=== PATIENT | female | born 1945 | race Caucasian/White ===

== ENCOUNTER 2021-09-15 14:02 | Observation (INO) | payer OTHER, BC ==
[2021-09-15 16:39] VITALS: BMI 30.1
[2021-09-15 17:54] LABS: Absolute Lymphocytes (CBC) 2.1 K/uL (0.7-4.9); Hematocrit 39.8 % (36.0-45.0); Lymphocytes % 25.3 % (15.3-44.8); MPV 6.5 fL (7.6-11.3); RBC Red Blood Cell Count 4.59 M/uL (3.86-4.86)
[2021-09-15] MEDS ORDERED: IPRATROPIUM BROM 0.5MG/2.5ML IH PRN (18:06)
[2021-09-15] MEDS ORDERED: ALBUTEROL 2.5 MG/3 ML NEB SOL NEB PRN (18:06)
[2021-09-15 18:15] LABS: Potassium 3.6 mmol/L (3.5-5.1)
[2021-09-15 18:43] LABS: Albumin 3.7 g/dL (3.4-5.0); Bilirubin Direct 0.2 mg/dL (0-0.2); Bilirubin Total 0.6 mg/dL (0.2-1.0); Magnesium 2.1 mg/dL (1.8-2.4); Phosphorus 3.4 mg/dL (2.5-4.9); Protein, Total 7.8 g/dL (6.4-8.2); Thyroid Stimulating Hormone 2.08 uIU/mL (0.360-3.740)
[2021-09-15] MEDS: CEFOXITIN 1 GM in NA CHLORIDE 0.9% 50 ML IVPB SCH (18:51)
[2021-09-15] MEDS ORDERED: LOPERAMIDE HCL 2 MG CAPSULE PO PRN (19:00)
[2021-09-15] MEDS ORDERED: POLYETHYL GLY 3350 17 GM/DOSE PO PRN (19:00)
[2021-09-15] MEDS ORDERED: ACETAMINOPHEN 325 MG TABLET PO PRN (19:00)
[2021-09-15] MEDS ORDERED: DIPHENHYDRAMINE 25 MG TAB/CAP PO PRN (19:00)
[2021-09-15] MEDS ORDERED: ONDANSETRON 4 MG (ODT) TAB PO PRN (19:00)
[2021-09-15] MEDS ORDERED: ONDANSETRON 4 MG/2 ML VIAL IV PRN (19:00)
[2021-09-15] MEDS ORDERED: NACHLORIDE 0.45% 1,000 ML IV SCH (19:00)
--- NOTE | 2021-09-15 19:45 | RAD REPORT ---
EXAM DESCRIPTION: CTAbdomen Pelvis W Contrast - 09/15/2021 7:23 pm CLINICAL HISTORY: Abdominal pain. abdominal pain COMPARISON: Abdomen Pelvis W Contrast dated 10/26/2016 TECHNIQUE: Biphasic CT imaging of the abdomen and pelvis was performed with 100 ml non-ionic IV cont rast. All CT scans are performed using dose optimization technique as appropriate and may include automated exposure control or mA/KV adjustment according to patient size. FINDINGS: Linear atelectasis is present in the right lung base. Mild fatty liver is present. No intra or extrahepatic biliary tree dilatation. The spleen, pancreas, adrenal glands are normal. Small benign cysts are present in both kidneys bilaterally. 4.2 cm infrarenal abdominal aortic aneurysm is present. This has increased in size from 3.2 cm in 201 7. No bowel obstruction, free air, free fluid or abscess. Mild lumbosacral degenerative changes. The katya endix is not identified as a discrete structure, however, no secondary findings of appendicitis are i dentified. No evidence of significant lymphadenopathy. No suspicious bony findings. IMPRESSION: 4.2 cm infrarenal abdominal aortic aneurysm, increased in size 1 centimeter since 2017. Mild fatty liver is present.
--- NOTE | 2021-09-15 20:04 | RAD REPORT ---
EXAM DESCRIPTION: RAD - Chest Pa And Lat (2 Views) - 09/15/2021 7:57 pm CLINICAL HISTORY: direct admit Chest pain. COMPARISON: Chest Single View dated 11/30/2019; Chest Pa And Lat (2 Views) dated 06/25/2019; Chest Pa An d Lat (2 Views) dated 10/26/2016 TECHNIQUE: PA and lateral views of the chest were obtained. FINDINGS: The lungs are hyperexpanded compatible with COPD. The heart is upper limit of normal in si ze. No fracture or aggressive bony process. IMPRESSION: COPD without acute process identified. The USPSTF recommends annual screening for lung cancer with low-dose CT (LDCT) in adults aged 50 to 80 years who have a 20 pack-year smoking history and currently smoke or have quit within the past 15 years.
--- NOTE | 2021-09-15 20:12 | RAD REPORT ---
EXAM DESCRIPTION: MRI - Lumbar Spine Wo Adolph- 09/15/2021 8:00 pm CLINICAL HISTORY: pain Pain, radiculopathy COMPARISON: No comparisons FINDINGS: Vertebral body heights are within normal limits. No aggressive marrow pattern is observed. No fracture is suspected. The conus medullaris terminates at a normal level. No thickening of the cauda equina or clumping of n erve roots seen. L1-2 level: Broad-based posterior disc bulge with mild facet and ligamentum flavum hypertrophy. L2-3 level: Broad-based posterior disc bulge with mild facet ligamentum flavum hypertrophy. No canal or foraminal stenosis. L3-4 level: Broad-based posterior disc bulge with mild facet and ligamentum flavum hypertrophy. Mild narrowing of the anterior inferior aspects of both exit foramina. L4-5 level: Mild posterior disc bulge asymmetric to the left with [id number] facet and ligament um flavum hypertrophy. Mild central canal narrowing is present. Mild narrowing the anterior inferior aspect of the left exit foramen. L5-S1 level: Mild facet and ligamentum flavum hypertrophy. IMPRESSION: Mild lumbar degenerative changes are present. No high-grade canal stenosis or foraminal stenosis at any level.
[2021-09-15] MEDS ORDERED: AMITRIPTYLINE 25 MG PO SCH (21:00)
[2021-09-15] MEDS ORDERED: HOME MED 1 EA UNK (Oxybutynin Chloride [Oxybutynin Chloride Er] 10 MG Tab.Er.24) PO SCH (21:00)
[2021-09-15] MEDS ORDERED: GABAPENTIN 400 MG PO SCH (21:00)
[2021-09-15] MEDS ORDERED: MELATONIN 5 MG PO SCH (21:00)
[2021-09-15] MEDS ORDERED: EZETIMIBE 10 MG PO SCH (21:00)
[2021-09-15] MEDS ORDERED: POTASSIUM CL SA 10 MEQ TAB PO ONE (21:00)
[2021-09-15] MEDS ORDERED: BISOPROLOL 5 MG TABLET PO SCH (21:00)
[2021-09-15] MEDS ORDERED: HOME MED 1 EA UNK (Meclizine Hcl [Meclizine Hcl] 25 MG Tablet) PO SCH (21:00)
[2021-09-16] MEDS: CEFOXITIN 1 GM in NA CHLORIDE 0.9% 50 ML IVPB SCH (02:02)
[2021-09-16 02:18] LABS: Urine Appearance Clear (Clear); Urine Bilirubin Negative (Negative); Urine Blood Trace-lysed (Negative); Urine Color Yellow (Yellow); Urine Glucose Negative (Negative); Urine Protein Negative (Negative); Urine Urobilinogen 0.2 mg/dL (0.2-1.0)
[2021-09-16 02:20] LABS: Urine Microscopic Reflex ORDER UMIC
[2021-09-16 03:18] LABS: Calcium Oxalate Crystals- Ur MODERATE (NONE SEEN); Urine Bacteria <20 /HPF (<20); Urine RBC <5 /HPF (NONE SEEN); Urine Urothelial Cells <5 /HPF (NONE SEEN)
[2021-09-16] MEDS ORDERED: LEVOTHYROXINE 0.075 MG PO SCH (06:00)
[2021-09-16] MEDS ORDERED: ENOXAPARIN 40 MG/0.4 ML SQ SCH (09:00)
[2021-09-16] MEDS ORDERED: FUROSEMIDE 20 MG PO SCH (09:00)
[2021-09-16] MEDS ORDERED: CHOLECALCIFEROL 125 MCG PO SCH (09:00)
[2021-09-16] MEDS ORDERED: HOME MED 1 EA UNK (Cetirizine Hcl [Zyrtec] 10 MG Tablet) PO SCH (09:00)
[2021-09-16 10:15] VITALS: BP 137/62; TEMP 97.1
[2021-09-16] MEDS ORDERED: IPRATROPIUM BROM 0.5MG/2.5ML NEB PRN (11:00)
[2021-09-16 11:06] VITALS: O2SAT 95
[2021-09-21 11:21] LABS: Vitamin D 1,25-Dihydroxy Total 89 pg/mL (18-72); Vitamin D,1,25-OH2, D2 <8 pg/mL
== END 2021-09-16 10:40 | disposition home or self-care (01) ==
LOC: 2ND 16:07
PROVIDERS: ADMIT Internal Medicine; ATTEND Internal Medicine
DX: M54.9 Dorsalgia, unspecified (principal); R10.84 Generalized abdominal pain; R63.4 Abnormal weight loss; Z68.30 Body mass index [BMI] 30.0-30.9, adult; J44.9 Chronic obstructive pulmonary disease, unspecified; I71.4 Abdominal aortic aneurysm, without rupture; E78.5 Hyperlipidemia, unspecified; M19.90 Unspecified osteoarthritis, unspecified site; R32 Unspecified urinary incontinence; G90.9 Disorder of the autonomic nervous system, unspecified; E55.9 Vitamin D deficiency, unspecified; K29.50 Unspecified chronic gastritis without bleeding; Z79.82 Long term (current) use of aspirin; Z79.899 Other long term (current) drug therapy; Z86.16 Personal history of COVID-19; Z20.822 Contact with and (suspected) exposure to COVID-19
CPT/HCPCS: 87040; 87088; 85025; 87086; 80048; 36415; 83735; 84100; 80076; 85730; 82652; 84443; 87077; 87186; 82607; 74177; 71046; 72148; U0003; Q9967; J1650; J0694 ×2; G0379; G0378 ×2; 81003; 81015

== ENCOUNTER 2021-12-23 07:30 | Day surgery (SDC) | payer OTHER, BC ==
[2021-12-21 15:45] LABS: Absolute Lymphocytes (CBC) 2.3 K/uL (0.7-4.9); Hematocrit 41.5 % (36.0-45.0); Lymphocytes % 28.8 % (15.3-44.8); MPV 6.9 fL (7.6-11.3); RBC Red Blood Cell Count 4.77 M/uL (3.86-4.86)
[2021-12-21 15:49] LABS: Potassium 4.2 mmol/L (3.5-5.1)
[2021-12-21 15:51] LABS: SARS-CoV-2 Antigen Rapid Res Negative (Negative)
--- NOTE | 2021-12-22 18:29 | EKG ---
Test Date: 2021-12-21 Test Time: 15:06:51 Casing Mixer: KEILA MEASUREMENT RESULTS: Intervals: Rate: 46 NM: 126 QRSD: 84 QT: 496 QTc: 434 [place]: P: 51 NM: 126 QRS: 26 T: 96 INTERPRETIVE STATEMENTS: Marked sinus bradycardia Cannot rule out Inferior infarct, age undetermined Abnormal ECG Compared to ECG 11/30/2019 17:49:51 Myocardial infarct finding now present Sinus rhythm no longer present T-wave abnormality no longer present Possible ischemia no longer present Electronically Signed On 12-22-21 18:28:07 CDT by Jaime Merchant
[2021-12-23] MEDS ORDERED: NA CHLORIDE 0.9% 500 ML ONE (08:14)
[2021-12-23] MEDS ORDERED: ATROPINE SULF 1 MG/10 ML SYR IV ONE (08:21)
[2021-12-23] MEDS ORDERED: NA CHLORIDE 0.9% 50 ML IV ONE (08:21)
[2021-12-23] MEDS ORDERED: FENTANYL CITR 100 MCG/2 ML ONE (08:21)
[2021-12-23] MEDS ORDERED: MIDAZOLAM HCL 2 MG/2 ML INJ ONE (08:21)
--- NOTE | 2021-12-23 09:29 | OP ---
Surgeon: Jaime Merchant MD Health Outreach Worker: Ms. Leonila Conthe. Procedure Performed: The patient underwent left heart catheterization, selective coronary arteriogra m, common femoral artery angiogram. Indication: Dyspnea on exertion and positive stress test. Ms. Kwon is 76. Has a history of dysli pidemia, hypertension, COPD, dyspnea on exertion, positive stress test. Procedure In Detail: Brought to the director of cath lab today as an outpatient, prepped and draped in routine s terile fashion. Given Versed and fentanyl for sedation. Seldinger technique was used to inserted a 6-[place] sheath in the right common femoral artery successfully. Angiography there was normal. Toyin o-Seal was used to close the case. Dylon catheter left and right were used to cannulate the left m ain and right main respectively. RCA was small, nondominant with diffuse plaquing. The left main wa s normal. Circumflex was very large, normal. The OM1 stenosis was 50% ostial and 70% mid, small ves milla about 2 mm in size. The LAD has diffuse plaquing throughout, but no focal stenosis. Anesthesia: Total conscious sedation was 30 minutes. Complications: None. Blood Loss: 5 cc. The patient tolerated the procedure well. Postoperative Diagnosis: Moderate coronary artery disease. Plan: For medical therapy. I will probably increase her beta-blockers. I will consider use of stat in, which she is not on, but we will discuss that as an outpatient for today. She will go home after 2 hours of bedrest. I will see her in the office in 2 weeks. JOY/GREGORIO Voice ID: [id number] Report ID: [id number]
[2021-12-23 10:18] VITALS: BP 137/69; O2SAT 98
== END 2021-12-23 10:57 | disposition home or self-care (01) ==
LOC: CCL 07:30
DX: I25.10 Atherosclerotic heart disease of native coronary artery without angina pectoris (principal); I65.23 Occlusion and stenosis of bilateral carotid arteries; I71.4 Abdominal aortic aneurysm, without rupture; I10 Essential (primary) hypertension; E78.5 Hyperlipidemia, unspecified; J44.1 Chronic obstructive pulmonary disease with (acute) exacerbation; Z87.891 Personal history of nicotine dependence; Z79.899 Other long term (current) drug therapy; Z88.0 Allergy status to penicillin; Z88.2 Allergy status to sulfonamides; Z20.822 Contact with and (suspected) exposure to COVID-19; Z82.49 Family history of ischemic heart disease and other diseases of the circulatory system
CPT/HCPCS: 36415; 80048; 85025; 85610; 85730; 87811; 93005; 93454; C1760; C1893; G0269; J0583; J2250; J3010; J7040; Q9967

== ENCOUNTER 2024-02-08 08:45 | Emergency (ER) | payer BC, MEDICAID, OTHER ==
--- OUTSIDE RECORDS SUMMARY | 2024-02-08 08:48 | XMS REPORT | Continuity of Care Document ---
Author Name Unknown Address [address] [facility] [place] [address] [facility] Address [address] [facility] [address] [place] [address] Care Team Providers Care Merchandise Handler Name Role Phone Erni Dinh Primary Care Physician [phone] DINH SWEENEY Attending Clinician Unavailable ODETTE PERIKNS Attending Clinician Unavailable RAKESH GARDUNO Attending Clinician Unavailable [address], [address] Rm Attending Clinician Unavailable PJ MCCLURE Attending Clinician Unavailabl e LAB90 Attending Clinician Unavailable VESNA SINCLAIR Attending Clinician Unava ilYENNY Monge Attending Clinician Unavailable TRED45 Attending Clinician Unavailable JADON SOLORIO Attending Clinician Unav ailYOBANI Aguirre Attending Clinician Unavailable FIDENCIO MEZA Attending Clinician Unavailable SABRA CHAN Attending Clinician Unavailable POLO CHANDLER Attending Clinician Unavailab CAROLE Gomes Attending Clinician Unavailable MD DENISE Attending Clinician Unavailab alpa Payers Payer Name Policy Type Policy Number Effective Date Expirati on Date Source [facility] HMO-POS 16 [id number] 00:00:00 [employer] [id number] 2023 00:00:00 [employer] Medicare [id number] 2023 00:00:00 Problems Condition Name Condition Details Condition Category Status Onset Date Resolution Date Last Treatment Date Treating Clinician Comments Source Abdominal aortic aneurysm (AAA) greater than 5.0 cm in diameter in female Abdominal aortic aneurysm (AAA) greater than 5.0 cm in diameter in female Disease Active 12-28 00:00: 00 [facility] Dermatitis Dermatitis Disease Active -14 00:00: 00 Nazanin Cash - Externa l Statin intoleranc e Statin intoleranc e Disease Active -14 00:00: 00 Nazanin Cash - Externa l Stage 3a chronic kidney disease Stage 3a chronic kidney disease Disease Active 3-13 00:00: 00 Nazanin Cash - Externa l Diarrhea Diarrhea Disease Active 2-15 00:00: 00 Overview: Formattin g of this note might be different from the original. 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 Disease Active 2022-04 00:00: 00 Nazanin Angelold - Externa l Immunodefi ciency due to conditions classified elsewhere (multi HCC) Immunodefi ciency due to conditions classified elsewhere (multi HCC) Disease Active 2022-04 00:00: 00 Nazanin Cash - Externa l Chronic back pain Chronic back pain Disease Active 2022-04 0 00:00: 00 Nazanin Cash - Externa l DDD (degenerat owen disc disease), thoracic DDD (degenerat owen disc disease), thoracic Disease Active 2022-04 0 00:00: 00 Nazanin Angelold - Externa l Hypothyroi dism (acquired) Hypothyroi dism (acquired) Disease Active 2022-04 0 00:00: 00 Nazanin Angelold - Externa l Insomnia Insomnia Disease Active 2022-04 0 00:00: 00 Nazanin Angelold - Externa l Urinary incontinen ce Urinary incontinen ce Disease Active 2022-04 0 00:00: 00 Nazanin Angelold - Externa l Chronic diastolic CHF (congestiv e heart failure) (multi HCC) Chronic diastolic CHF (congestiv e heart failure) (multi HCC) Disease Active 2022-04 0-05 00:00: 00 Nazanin Sejuan danielold - Externa l COPD (chronic obstructiv e pulmonary disease) (multi HCC) COPD (chronic obstructiv e pulmonary disease) (multi HCC) Disease Active 2022-04 0-05 00:00: 00 Nazanin Seybold - Externa l AAA (abdominal aortic aneurysm) AAA (abdominal aortic aneurysm) Disease Active 2022-04 0-05 00:00: 00 Nazanin Seybold - Externa l Stress disorder, post traumatic Stress disorder, post traumatic Disease Active 2022-04 0-05 00:00: 00 Nazanin Seybold - Externa l Allergic rhinitis Allergic rhinitis Disease Active 2022-04 0-05 00:00: 00 Nazanin Seybold - Externa l Vertigo Vertigo Disease Active 2022-04 0-05 00:00: 00 Nazanin Angelold - Externa l Cataract Cataract Disease Active 2022-04 0-05 00:00: 00 Nazanin Angelold - Externa l Hyperlipem ia Hyperlipem ia Disease Active [facility] Congestive heart failure (CHF) Congestive heart failure (CHF) Disease Active [facility] Hypothyroi dism Hypothyroi dism Disease Active [facility] Chronic kidney disease Chronic kidney disease Disease Active [facility] Hypertensi on Hypertensi on Disease Active [facility] Allergies, Adverse Reactions, Alerts Allergy Name Allergy Type Status Severity Reaction(s) Onset Date Inactive Date Treating Clinician Comments Source Sulfa Antibiot ics Propensi ty to adverse reaction s Active Other 2023-04 0-15 00:00: 00 nausea Memoria l Gino Epic Atorvast atin Propensi ty to adverse reaction s Active Diarrhea 2-15 00:00: 00 Memoria l Hope Hull Epic Sulfa Drugs Propensi ty to adverse reaction s Active 2022-04 0-04 00:00: 00 Nazanin Angelold - Externa l Amoxicil corbin Propensi ty to adverse reaction s Active 8- 00:00: 00 Other reaction( s): Nausea/Vo miting Nazanin Sejuan danielold - Externa l Amoxicil corbin Propensi ty to adverse reaction s Active 8- 00:00: 00 Other reaction( s): Nausea/Vo miting Memoria l [facility] Social History Social Habit Start Date Stop Date Quantity Comments Source History of tobacco use Cigarette Smoker [facility] ASSERTION Possible [facility] Gender identity Tim kalyan [facility] Sexual orientation [facility] History of Occupation Nazanin Cash - External Alcoholic beverage intake 2024 00:00:00 2024 00:00:00 Ex-drinker (finding) Nazanin Cash - External History of Social function 2023-12-29 00:00:00 2023-12-29 00:00:00 [facility] Cigarettes smoked current (pack per day) - Reported 2023-09-05 00:00:00 2023-09-05 00:00:00 Nazanin Cash - External Cigarette pack-years 2023-09-05 00:00:00 2023-09-05 00:00:00 Nazanin Cash - External Tobacco use and exposure 2023-09-05 00:00:00 2023-09-05 00:00:00 Smokeless tobacco non-user Nazanin Cash - External Alcohol intake 2023-07-05 00:00:00 2023-07-05 00:00:00 Ex-drinker (finding) Nazanin Cash - External Education 2023-01-26 00:00:00 2023-01-26 00:00:00 16 Nazanin Cash - External Sex 2023-01-04 09:41:24 2023-01-04 09:41:24 Female (finding) Nazanin Cash - External Sex assigned at 1945 00:00:00 1945 00:00:00 [facility] Smoking Status Start Date Stop Date Source Tobacco smoking consumption unknown [facility] c Ex-smoker 2023-09-05 00:00:00 2023-09-05 00:00:00 Nazanin Cash - External Medications Ordered Medication Name Filled Medication Name Start Date Stop Date Current Medication? Ordering Clinician Indication Dosage Frequency Signature (SIG) Comments Components Source iohexol (OMNIPaque) 350 MG/ML injection 80 mL iohexol (OMNIPaque) 350 MG/ML injection 80 mL 2023-04 0 13:13: 15 02-05 13:13 :00 No 80mL 80 mL, Intravenou s, Once in imaging, Starting on Mon02/06/24 at 1313, For 1 dose Millie Christian Epic sodium chloride 0.9 % bolus 300 mL sodium chloride 0.9 % bolus 300 mL 2023-04 10:45: 00 02-05 12:20 :00 No 300mL 300 mL, Intravenou s, at 150 mL/hr, Administer over 2 Hours, Once, On Mon02/06/24 at 1045, For 1 dose Millie Christian Epic Cetirizine (ZYRTEC) 10 MG oral Tablet 01-07 07:54: 37 Yes 10mg QD Take 1 tablet (10 mg total) by mouth daily. Nazanin taylor Probiotic Product (PROBIOTIC- 10 ULTIMATE OR) 01-07 07:54: 37 Yes 1{tbl} QD Take 1 tablet by mouth daily. Nazanin taylor Melatonin 5 MG oral Tablet 01-07 07:54: 37 Yes 1{tbl} QD Take 1 tablet by mouth nightly. Nazanin taylor Cetirizine (ZYRTEC) 10 MG oral Tablet 12-19 13:08: 34 Yes 10mg QD Take 1 tablet (10 mg total) by mouth daily. Nazanin taylor Probiotic Product (PROBIOTIC- 10 ULTIMATE OR) 12-19 13:08: 34 Yes 1{tbl} QD Take 1 tablet by mouth daily. Nazanin taylor Melatonin 5 MG oral Tablet 12-19 13:08: 34 Yes 1{tbl} QD Take 1 tablet by mouth nightly. Nazanin taylor Oxybutynin Chloride 10 MG oral TABLET SR 24 HR 12-04 00:00: 00 Yes [id number] 10mg QD Take 1 tablet (10 mg total) by mouth daily. Nazanin taylor Rosuvastati n Calcium 20 MG oral Tablet 12-04 00:00: 00 Yes 20mg QD TAKE 1 TABLET (20 MG TOTAL) BY MOUTH DAILY Nazanin taylor Gabapentin 400 MG oral Capsule 30 00:00: 00 Yes [id number] 400mg [id number] 3D Take 1 capsule (400 mg total) by mouth 3 times daily. Nazanin taylor Levothyroxi ne Sodium 75 MCG oral Tablet 15 00:00: 00 Yes TAKE 1 TABLET BY MOUTH DAILY IN MORNING ON EMPTY STOMACH 1 HOUR BEFORE BREAKFAST Nazanin taylor Beclomethas one Diprop (Qvar RediHaler) 80 MCG/ACT inhalation AEROSOL, BREATH ACTIVATED 10-24 00:00: 00 Yes [id number] 1{inhal ation} Q.5D Inhale 1 Inhalation into the lungs 2 times daily. Nazanin taylor Cetirizine (ZYRTEC) 10 MG oral Tablet 10-04 09:05: 10 Yes 10mg Take 1 tablet (10 mg total) by mouth daily. Nazanin taylor Probiotic Product (PROBIOTIC- 10 ULTIMATE OR) 10-04 09:05: 10 Yes 1{tbl} Take 1 tablet by mouth daily. Nazanin taylor Melatonin 5 MG oral Tablet 10-04 09:05: 10 Yes 1{tbl} Take 1 tablet by mouth nightly. Nazanin taylor Ketoconazol e 2 % apply externally Cream 09-04 00:00: 00 Yes [id number] Apply to the affected skin twice daily for 10 days. Nazanin taylor Ezetimibe (Zetia) 10 MG oral Tablet 09-04 00:00: 00 Yes [id number] 10mg Take 1 tablet (10 mg total) by mouth daily. Nazanin taylor Triamcinolo ne Acetonide 0.1 % apply externally Cream 09-04 00:00: 00 10-03 04:59 :00 No [id number] Apply to the affected skin twice daily for 10 days. Nazanin taylor Doxycycline Hyclate 100 MG oral Tablet 08-29 00:00: 00 10-04 00:00 :00 No [id number] 100mg Take 1 tablet (100 mg total) by mouth 2 times daily. Nazanin taylor Atorvastati n Calcium 10 MG oral Tablet 08-23 00:00: 00 Yes 10mg Take 1 tablet (10 mg total) by mouth daily. Nazanin taylor Gabapentin 400 MG oral Capsule 08-23 00:00: 00 Yes [id number] 400mg Take 1 capsule (400 mg total) by mouth 3 times daily. Nazanin taylor Oxybutynin Chloride 10 MG oral TABLET SR 24 HR 08-23 00:00: 00 Yes [id number] 10mg Take 1 tablet (10 mg total) by mouth daily. Nazanin taylor Naltrexone HCl, Pain, 1.5 MG oral Capsule 08-23 00:00: 00 Yes [id number] 1{capsu le} Q.5D Take 1 capsule by mouth 2 times daily WITH FOOD. Nazanin taylor Furosemide (LASIX) 20 MG oral Tablet 07-30 00:00: 00 01-07 00:00 :00 No 20mg QD Take 1 tablet (20 mg total) by mouth daily. Nazanin taylor Spironolact one 50 MG oral Tablet 07-23 00:00: 00 01-07 00:00 :00 No 50mg QD Take 1 tablet (50 mg total) by mouth daily. Nazanin taylor Cetirizine (ZYRTEC) 10 MG oral Tablet 07:54: 37 Yes 10mg Take 1 tablet (10 mg total) by mouth daily. Nazanin taylor Probiotic Product (PROBIOTIC- 10 ULTIMATE OR) 07:54: 37 Yes 1{tbl} Take 1 tablet by mouth daily. Nazanin taylor Melatonin 5 MG oral Tablet 07:54: 37 Yes 1{tbl} Take 1 tablet by mouth nightly. Nazanin taylor Cetirizine (ZYRTEC) 10 MG oral Tablet 06-08 14:11: 49 Yes 10mg Take 1 tablet (10 mg total) by mouth daily. Nazanin taylor Probiotic Product (PROBIOTIC- 10 ULTIMATE OR) 06-08 14:11: 49 Yes 1{tbl} Take 1 tablet by mouth daily. Nazanin taylor Melatonin 5 MG oral Tablet 06-08 14:11: 49 Yes 1{tbl} Take 1 tablet by mouth nightly. Nazanin taylor Tramadol HCl (ULTRAM) 50 MG oral Tablet 06-08 00:00: 00 Yes [id number] 50mg QD Take 1 tablet (50 mg total) by mouth daily as needed for pain. Nazanin taylor Triamcinolo ne Acetonide 0.1 % apply externally Cream 06-08 00:00: 00 07-06 04:59 :00 No [id number] Apply to the affected skin twice daily. Nazanin taylor Spironolact one 50 MG oral Tablet 2022-04 00:00: 00 Yes 50mg Take 1 tablet (50 mg total) by mouth daily. Nazanin taylor Gabapentin 400 MG oral Capsule 2022-04 00:00: 00 Yes [id number] 400mg Take 1 capsule (400 mg total) by mouth 3 times daily. Nazanin taylor Cetirizine (ZYRTEC) 10 MG oral Tablet 2022-04 13:47: 44 Yes 10mg Take 1 tablet (10 mg total) by mouth daily. Nazanin taylor Spironolact one 50 MG oral Tablet 2022-04 13:47: 44 Yes 50mg Take 1 tablet (50 mg total) by mouth daily. Nazanin taylor Probiotic Product (PROBIOTIC- 10 ULTIMATE OR) 2022-04 13:47: 44 Yes 1{tbl} Take 1 tablet by mouth daily. Nazanin taylor Melatonin 5 MG oral Tablet 2022-04 13:47: 44 Yes 1{tbl} Take 1 tablet by mouth nightly. Nazanin taylor Azithromyci n 250 MG oral Tablet 2022-04 00:00: 00 03-19 05:59 :00 No [id number] Take 2 tablets by mouth on day 1 then 1 tablet by mouth daily for 4 days thereafter . Take with food.. Nazanin taylor Escitalopra m Oxalate 10 MG oral Tablet 2022-04 00:00: 00 Yes [id number] 10mg QD Take 1 tablet (10 mg total) by mouth daily. Nazanin taylor Naltrexone HCl, Pain, 1.5 MG oral Capsule 2022-04 10:24: 06 02-28 00:00 :00 No 1{capsu le} Take 1 capsule by mouth 2 times daily. Nazanin taylor Oxybutynin Chloride 10 MG oral TABLET SR 24 HR 2022-04 10:24: 06 02-28 00:00 :00 No 10mg Take 1 tablet (10 mg total) by mouth daily. Nazanin taylor Ezetimibe 10 MG oral Tablet 2022-04 10:19: 20 02-28 00:00 :00 No 10mg Take 1 tablet (10 mg total) by mouth daily. Nazanin taylor Cetirizine (ZYRTEC) 10 MG oral Tablet 2022-04 10:05: 20 Yes 10mg Take 1 tablet (10 mg total) by mouth daily. Nazanin taylor Spironolact one 50 MG oral Tablet 2022-04 10:05: 20 Yes 50mg Take 1 tablet (50 mg total) by mouth daily. Nazanin taylor Probiotic Product (PROBIOTIC- 10 ULTIMATE OR) 2022-04 10:05: 20 Yes 1{tbl} Take 1 tablet by mouth daily. Nazanin taylor Melatonin 5 MG oral Tablet 2022-04 10:05: 20 Yes 1{tbl} Take 1 tablet by mouth nightly. Nazanin taylor Escitalopra m Oxalate 10 MG oral Tablet 2022-04 00:00: 00 Yes [id number] 10mg Take 1 tablet (10 mg total) by mouth daily. Nazanin taylor Oxybutynin Chloride 10 MG oral TABLET SR 24 HR 2022-04 00:00: 00 Yes [id number] 10mg Take 1 tablet (10 mg total) by mouth daily. Nazanin taylor Naltrexone HCl, Pain, 1.5 MG oral Capsule 2022-04 00:00: 00 Yes [id number] 1{capsu le} Take 1 capsule by mouth 2 times daily. Nazanin taylor Atorvastati n Calcium (Lipitor) 10 MG oral Tablet 2022-04 00:00: 00 06-08 00:00 :00 No [id number] 10mg Take 1 tablet (10 mg total) by mouth nightly. Nazanin taylor Meclizine HCl 25 MG oral Tablet 2022-0430 00:00: 00 06-08 00:00 :00 No [id number] 25mg QD Take 1 tablet (25 mg total) by mouth daily as needed for dizziness. Nazanin taylor Furosemide (LASIX) 20 MG oral Tablet 2022-04 00:00: 00 Yes 20mg Take 1 tablet (20 mg total) by mouth daily. Nazanin taylor Levothyroxi ne Sodium 75 MCG oral Tablet 2022-04 00:00: 00 Yes 75ug Take 1 tablet (75 mcg total) by mouth daily. Nazanin taylor Escitalopra m Oxalate 10 MG oral Tablet 2022-04 0-16 00:00: 00 02-28 00:00 :00 No [id number] 10mg Take 1 tablet (10 mg total) by mouth daily. Nazanin taylor Naltrexone HCl, Pain, 1.5 MG oral Capsule 2022-04 005 09:18: 41 Yes 1{capsu le} Take 1 capsule by mouth 2 times daily. Nazanin taylor Furosemide (LASIX) 20 MG oral Tablet 2022-04 0-05 09:18: 41 Yes 20mg Take 1 tablet (20 mg total) by mouth daily. Nazanin taylor Meclizine HCl 25 MG oral Tablet 2022-04 09:18: 41 Yes 25mg QD Take 1 tablet (25 mg total) by mouth daily as needed for dizziness. Nazanin taylor Levothyroxi ne Sodium 75 MCG oral Tablet 2022-04 09:18: 41 Yes 75ug Take 1 tablet (75 mcg total) by mouth daily. Nazanin taylor Oxybutynin Chloride 10 MG oral TABLET SR 24 HR 2022-04 09:18: 41 Yes 10mg Take 1 tablet (10 mg total) by mouth daily. Nazanin taylor Spironolact one 50 MG oral Tablet 2022-04 09:18: 41 Yes 50mg Take 1 tablet (50 mg total) by mouth daily. Nazanin taylor Ezetimibe 10 MG oral Tablet 2022-04 09:18: 41 Yes 10mg Take 1 tablet (10 mg total) by mouth daily. Nazanin taylor Probiotic Product (PROBIOTIC- 10 ULTIMATE OR) 2022-04 09:18: 41 Yes 1{tbl} Take 1 tablet by mouth daily. Nazanin taylor Melatonin 5 MG oral Tablet 2022-04 09:18: 41 Yes 1{tbl} Take 1 tablet by mouth nightly. Nazanin taylor Amitriptyli ne HCl 25 MG oral Tablet 2022-04 09:16: 12 01-26 00:00 :00 No 25mg Take 1 tablet (25 mg total) by mouth nightly. Nazanin taylor Gabapentin 300 MG oral Capsule 2022-04 09:15: 03 01-26 00:00 :00 No 300mg Take 1 capsule (300 mg total) by mouth 3 times daily. Nazanin taylor Cetirizine (ZYRTEC) 10 MG oral Tablet 2022-04 08:52: 51 Yes 10mg Take 1 tablet (10 mg total) by mouth daily. Nazanin taylor Gabapentin 400 MG oral Capsule 2022-04 00:00: 00 Yes [id number] 400mg Take 1 capsule (400 mg total) by mouth 3 times daily. Nazanin Cash - Externa l Citalopram Hydrobromid e 10 MG oral Tablet 2022-1 005 00:00: 00 Yes [id number] 10mg Take 1 tablet (10 mg total) by mouth daily. Nazanin Cash - Externa l Immunizations Ordered Immunization Name Filled Immunization Name Date Status Comments Source Influenza Virus Vaccine, High Dose, Age 65 And Up Unknown Completed Nazanin Seybold - External Influenza Virus Vaccine, Quadrivalent, High Dose, Age 65 And Up Unknown Completed Nazanin S eybold - External Influenza Virus Vaccine, High Dose, Age 65 And Up Unknown Completed Nazanin Seybold - External Influenza Virus Vaccine, Quadrivalent, High Dose, Age 65 And Up Unknown Completed Nazanin S eybold - External Influenza Virus Vaccine, High Dose, Age 65 And Up Unknown Completed Nazanin Seybold - External Influenza Virus Vaccine, Quadrivalent, High Dose, Age 65 And Up Unknown Completed Nazanin S eybold - External Influenza Virus Vaccine, High Dose, Age 65 And Up Unknown Completed Nazanin Seybold - External Influenza Virus Vaccine, Quadrivalent, High Dose, Age 65 And Up Unknown Completed Nazanin S eybold - External Shingles IM (Shingrix) Unknown Completed Nazanin Seybold - External Influenza Virus Vaccine, High Dose, Age 65 And Up Unknown Completed Nazanin Seybold - External Influenza Virus Vaccine, Quadrivalent, High Dose, Age 65 And Up Unknown Completed Nazanin S eybold - External Shingles IM (Shingrix) Unknown Completed Nazanin Seybold - External Influenza Virus Vaccine, High Dose, Age 65 And Up Unknown Completed Nazanin Seybold - External Influenza Virus Vaccine, Quadrivalent, High Dose, Age 65 And Up Unknown Completed Nazanin S eybold - External Shingles IM (Shingrix) Unknown Completed Nazanin Seybold - External Influenza Virus Vaccine, High Dose, Age 65 And Up Unknown Completed Nazanin Seybold - External Influenza Virus Vaccine, Quadrivalent, High Dose, Age 65 And Up Unknown Completed Nazanin S eybold - External Shingles IM (Shingrix) Unknown Completed Nazanin Seybold - External Influenza Virus Vaccine, High Dose, Age 65 And Up Unknown Completed Nazanin Seybold - External Influenza Virus Vaccine, Quadrivalent, High Dose, Age 65 And Up Unknown Completed Nazanin S eybold - External Shingles IM (Shingrix) Unknown Completed Nazanin Angelold - External Influenza Virus Vaccine, High Dose, Age 65 And Up Unknown Completed Nazanin Angelold - External Influenza Virus Vaccine, Quadrivalent, High Dose, Age 65 And Up Unknown Completed Nazanin Garcia eybold - External Shingles IM (Shingrix) Unknown Completed Nazanin Angelold - External Influenza Virus Vaccine, High Dose, Age 65 And Up Unknown Completed Nazanin Angelold - External Influenza Virus Vaccine, Quadrivalent, High Dose, Age 65 And Up Unknown Completed Nazanin Garcia eybold - External Shingles IM (Shingrix) Unknown Completed Nazanin Cash - External Vital Signs Vital Name Observation Time Observation Value Comments S ource Body height 2024-02-06 09:00:00 160 cm [facility] Body weight 2024-02-06 09:00:00 72.576 kg [facility] BMI 2024-02-06 09:00:00 28.34 kg/m2 [facility] Body height 2024-02-06 09:00:00 160 cm [facility] Body weight 2024-02-06 09:00:00 72.576 kg [facility] BMI 2024-02-06 09:00:00 28.34 kg/m2 [facility] Systolic blood pressure 2024 12:53:00 128 mm[Hg] Nazanin Angelo ld - External Diastolic blood pressure 2024 12:53:00 60 mm[Hg] Nazanin Angelo ld - External Heart rate 2024 12:53:00 47 /min Kika renée Seybold - External Body temperature 2024 12:53:00 36.61 Brittany Nazanin Seybold - External Respiratory rate 2024 12:53:00 18 /min Nazanin Nolenybold - External Body height 2024 12:53:00 160 cm Triny ey Seybold - External Body weight 2024 12:53:00 77.565 kg Triny ey Seybold - External BMI 2024 12:53:00 30.29 kg/m2 Triny ey Seybold - External Oxygen saturation in Arterial blood by Pulse oximetry 2024 12:53:00 96 /min Nazanin Seybo ld - External Systolic blood pressure 2023-10-05 14:03:00 137 mm[Hg] Nazanin Seybo ld - External Diastolic blood pressure 2023-10-05 14:03:00 65 mm[Hg] Nazanin Seybo ld - External Heart rate 2023-10-05 14:03:00 58 /min Kelse y Seybold - External Body temperature 2023-10-05 14:03:00 36.56 Brittany Nazanin Seybold - External Respiratory rate 2023-10-05 14:03:00 18 /min Nazanin Seybold - External Body height 2023-10-05 14:03:00 160 cm Triny ey Seybold - External Body weight 2023-10-05 14:03:00 76.658 kg Triny ey Seybold - External BMI 2023-10-05 14:03:00 29.94 kg/m2 Triny ey Seybold - External Oxygen saturation in Arterial blood by Pulse oximetry 2023-10-05 14:03:00 96 /min Nazanin Seybo ld - External Systolic blood pressure 2023-09-05 19:17:00 136 mm[Hg] Nazanin Seybo ld - External Diastolic blood pressure 2023-09-05 19:17:00 62 mm[Hg] Nazanin Seybo ld - External Heart rate 2023-09-05 19:17:00 55 /min Deucese y Seybold - External Respiratory rate 2023-09-05 19:17:00 16 /min Nazanin Seybold - External Body height 2023-09-05 19:17:00 160 cm Triny ey Seybold - External Body weight 2023-09-05 19:17:00 78.926 kg Triny ey Seybold - External BMI 2023-09-05 19:17:00 30.82 kg/m2 Triny ey Seybold - External Oxygen saturation in Arterial blood by Pulse oximetry 2023-09-05 19:17:00 97 /min Nazanin Seybo ld - External Systolic blood pressure 2023-07-05 14:13:00 132 mm[Hg] Nazanin Seybo ld - External Diastolic blood pressure 2023-07-05 14:13:00 81 mm[Hg] Nazanin Seybo ld - External Heart rate 2023-07-05 14:13:00 78 /min Kelse y Seybold - External Body temperature 2023-07-05 14:13:00 36.56 Brittany Nazanin Seybold - External Respiratory rate 2023-07-05 14:13:00 15 /min Nazanin Seybold - External Body height 2023-07-05 14:13:00 160 cm Triny ey Seybold - External Body weight 2023-07-05 14:13:00 76.658 kg Triny ey Seybold - External BMI 2023-07-05 14:13:00 29.94 kg/m2 Triny ey Seybold - External Oxygen saturation in Arterial blood by Pulse oximetry 2023-07-05 14:13:00 100 /min Nazanin Seybo ld - External Systolic blood pressure 2023-06-22 13:52:00 146 mm[Hg] Nazanin Seybo ld - External Diastolic blood pressure 2023-06-22 13:52:00 62 mm[Hg] Nazanin Seybo ld - External Heart rate 2023-06-22 13:52:00 61 /min Deucese y Seybold - External Body temperature 2023-06-22 13:52:00 36.28 Brittany Nazanin Seybold - External Respiratory rate 2023-06-22 13:52:00 14 /min Nazanin Seybold - External Body height 2023-06-22 13:52:00 160 cm Triny ey Seybold - External Body weight 2023-06-22 13:52:00 76.658 kg Triny ey Seybold - External BMI 2023-06-22 13:52:00 29.94 kg/m2 Triny ey Seybold - External Systolic blood pressure 2023-06-08 20:09:00 129 mm[Hg] Nazanin Seybo ld - External Diastolic blood pressure 2023-06-08 20:09:00 63 mm[Hg] Nazanin Seybo ld - External Heart rate 2023-06-08 20:09:00 62 /min Kelse y Seybold - External Respiratory rate 2023-06-08 20:09:00 20 /min Nazanin Seybold - External Body height 2023-06-08 20:09:00 160 cm Triny ey Seybold - External Body weight 2023-06-08 20:09:00 77.474 kg Triny ey Seybold - External BMI 2023-06-08 20:09:00 30.26 kg/m2 Triny ey Seybold - External Oxygen saturation in Arterial blood by Pulse oximetry 2023-06-08 20:09:00 98 /min Nazanin Seybo ld - External Systolic blood pressure 2023-03-13 19:44:00 132 mm[Hg] Nazanin Seybo ld - External Diastolic blood pressure 2023-03-13 19:44:00 74 mm[Hg] Nazanin Seybo ld - External Heart rate 2023-03-13 19:44:00 74 /min Kelse y Seybold - External Body temperature 2023-03-13 19:44:00 37.28 Brittany Nazanin Seybold - External Respiratory rate 2023-03-13 19:44:00 18 /min Nazanin Seybold - External Body height 2023-03-13 19:44:00 160 cm Triny ey Seybold - External Body weight 2023-03-13 19:44:00 74.39 kg Triny ey Seybold - External BMI 2023-03-13 19:44:00 29.05 kg/m2 Triny ey Seybold - External Oxygen saturation in Arterial blood by Pulse oximetry 2023-03-13 19:44:00 98 /min Nazanin Seybo ld - External Systolic blood pressure 2023-02-28 16:03:00 135 mm[Hg] Nazanin Seybo ld - External Diastolic blood pressure 2023-02-28 16:03:00 82 mm[Hg] Nazanin Seybo ld - External Heart rate 2023-02-28 16:03:00 76 /min Kelse y Seybold - External Body temperature 2023-02-28 16:03:00 37.06 Brittany Nazanin Seybold - External Respiratory rate 2023-02-28 16:03:00 15 /min Nazanin Seybold - External Body height 2023-02-28 16:03:00 160 cm Triny ey Seybold - External Body weight 2023-02-28 16:03:00 75.297 kg Triny ey Seybold - External BMI 2023-02-28 16:03:00 29.41 kg/m2 Triny ey Seybold - External Oxygen saturation in Arterial blood by Pulse oximetry 2023-02-28 16:03:00 99 /min Nazanin Angelo ld - External Systolic blood pressure 2023-01-26 13:50:00 132 mm[Hg] Nazanin Nolenybo ld - External Diastolic blood pressure 2023-01-26 13:50:00 80 mm[Hg] Nazanin Nolenybo ld - External Heart rate 2023-01-26 13:50:00 66 /min Kika y Seybold - External Body temperature 2023-01-26 13:50:00 37.22 Brittany Nazanin Seybold - External Respiratory rate 2023-01-26 13:50:00 20 /min Nazanin Seybold - External Body height 2023-01-26 13:50:00 161.3 cm Triny ey Seybold - External Body weight 2023-01-26 13:50:00 75.014 kg Triny ey Seybold - External BMI 2023-01-26 13:50:00 28.84 kg/m2 Triny ey Seybold - External Oxygen saturation in Arterial blood by Pulse oximetry 2023-01-26 13:50:00 96 /min Nazanin Pompa ld - External Procedures Procedure Date / Time Performed Performing Clinicia n Source POC CREATININE UNSOLICITED RESULTS 2024-02-06 12:47:00 Poct, Generic Provider [facility] Encounters Start Date/Time End Date/Time Encounter Type Admission Type Attending [facility] Care Department Encounter ID Source 2024-07-08 08:00:00 2024-07-08 08:00:00 Outpatient DINH SWEENEY [id number] Nazanin leora 2024-06-11 11:10:00 2024-06-11 11:10:00 Outpatient ODETTE PERKINS [id number] Nazanin leora 2024-02-21 13:15:00 2024-02-21 13:15:00 Outpatient NAZANIN ACOSTA [id number] Nazanin Cash 2024-02-07 09:00:00 2024-02-07 09:00:00 Outpatient RAKESH GARDUNO [facility] [id number] [facility] 2024-02-06 09:21:28 2024-02-06 23:59:00 Outpatient Elective MHESE ESE [id number] ESE 2024-02-06 09:21:28 2024-02-06 23:59:00 Hospital Encounter 2, Se Ct Rm [facility] [id number] [facility] 2024-02-05 00:00:00 2024-02-05 00:00:00 Outpatient DINH SWEENEY [id number] Nazanin [facility] 2024-02-01 00:00:00 2024-02-01 23:59:00 Outpatient Elective MHESE ESE [id number] ESE 2024-01-23 00:00:00 2024-01-23 00:00:00 Outpatient [facility]ANIN ACOSTA [id number] [facility] 08:00:00 2024 08:00:00 Outpatient DINH SWEENEY [id number] [facility] 2024-01-05 00:00:00 2024-01-05 00:00:00 Outpatient NAZANIN ACOSTA [id number] [facility] 2024-01-04 00:00:00 2024-01-04 00:00:00 Outpatient PJ MCCLURE [id number] [facility] 2024-01-03 00:00:00 2024-01-03 00:00:00 Outpatient DINH SWEENEY [id number] [facility] 2024-01-03 00:00:00 2024-01-03 00:00:00 Outpatient [facility]IN[facility]ENE[facility] [id number] [facility] 2024-01-03 00:00:00 2024-01-03 00:00:00 Outpatient PJ MCCLURE [id number] [facility] 2024-01-02 08:20:00 2024-01-02 08:20:00 Outpatient LAB90 NAZANIN ACOSTA [id number] [facility] 2023-12-29 10:00:00 2023-12-29 11:37:32 Office Visit Rakesh Garduno [facility] [id number] [facility] 2023-12-20 13:00:00 2023-12-20 13:00:00 Outpatient VESNA SINCLAIR NAZANIN ACOSTA [id number] [facility] 2023-12-14 00:00:00 2023-12-14 00:00:00 Outpatient ODETTE PERKINS [id number] [facility] 2023-12-13 00:00:00 2023-12-13 00:00:00 Outpatient NAZANIN ACOSTA [id number] [facility] 2023-12-08 00:00:00 2023-12-08 00:00:00 Outpatient NAZANIN ACOSTA [id number] [facility] 2023-12-07 13:30:00 2023-12-07 13:30:00 Outpatient ODETTE PERKINS [id number] [facility] 2023-12-05 00:00:00 2023-12-05 00:00:00 Outpatient ODETTE PERKINS [id number] [facility] 2023-12-04 00:00:00 2023-12-04 00:00:00 Outpatient DINH SWEENEY [id number] [facility] 2023-11-30 11:10:00 2023-11-30 11:10:00 Outpatient ODETTE PERKINS [id number] [facility] 2023-11-20 13:55:00 2023-11-20 13:55:00 Outpatient LAB90 NAZANIN ACOSTA [id number] [facility] 2023-11-20 00:00:00 2023-11-20 00:00:00 Outpatient YENNY SOLIS [id number] [facility] 2023-11-20 00:00:00 2023-11-20 00:00:00 Outpatient DINH SWEENEY NAZANIN ACOSTA [id number] [facility] 2023-11-20 00:00:00 2023-11-20 00:00:00 Outpatient DINH SWEENEY NAZANIN ACOSTA [id number] Nazanin [facility] 2023-11-13 00:00:00 2023-11-13 00:00:00 Outpatient YENNY SOLIS NAZANIN ACOSTA [id number] Nazanin [facility] 2023-11-06 00:00:00 2023-11-06 00:00:00 Outpatient DINH SWEENEY NAZANIN ACOSTA [id number] Nazanin [facility] 2023-11-06 00:00:00 2023-11-06 00:00:00 Outpatient NAZANIN ACOSTA [id number] Naz[facility]in [facility] 2023-10-25 10:15:00 2023-10-25 10:15:00 Outpatient NAZANIN ACOSTA [id number] Nazanin [facility] 2023-10-25 00:00:00 2023-10-25 00:00:00 Outpatient DINH SWEENEY NAZANIN ACOSTA [id number] Nazanin [facility] 2023-10-24 00:00:00 2023-10-24 00:00:00 Outpatient DINH SWEENEY NAZANIN ACOSTA [id number] Nazanin [facility] 2023-10-24 00:00:00 2023-10-24 00:00:00 Outpatient NA[facility]ANIN ACOSTA [id number] [facility] 2023-10-20 09:00:00 2023-10-20 09:00:00 Outpatient NAZANIN ACOSTA [id number] [facility] 2023-10-19 08:00:00 2023-10-19 08:00:00 Outpatient LAB90 NAZANIN ACOSTA [id number] [facility] 2023-10-19 00:00:00 2023-10-19 00:00:00 Outpatient DINH SWEENEY NAZANIN ACOSTA [id number] [facility] 2023-10-19 00:00:00 2023-10-19 00:00:00 Outpatient PREZAS, DINH NAZANIN NAZANIN [id number] Nazanin Cash 2023-10-18 10:10:00 2023-10-18 10:10:00 Outpatient ODETTE PERKINS NAZANIN ACOSTA [id number] Nazanin Nolenjustin 2023-10-18 09:30:00 2023-10-18 09:30:00 Outpatient TRED45 NAZANIN ACOSTA [id number] Nazanin Nolenjustin 2023-10-17 12:20:00 2023-10-17 12:20:00 Outpatient NAZANIN ACOSTA [id number] Nazanin justin 2023-10-17 10:30:00 2023-10-17 10:30:00 Outpatient ODETTE PERKINS NAZANIN ACOSTA [id number] [facility]in [facility] 2023-10-12 00:00:00 2023-10-12 00:00:00 Outpatient NAZANIN ACOSTA [id number] [facility]in [facility] 2023-10-05 09:15:00 2023-10-05 09:15:00 Outpatient DINH SWEENEY NAZANIN ACOSTA [id number] Naz[facility]in [facility] 2023-09-26 08:00:00 2023-09-26 08:00:00 Outpatient LAB90 [facility] [id number] [facility] 09:25:00 2023-09-22 09:25:00 Outpatient OSMIN, JADON ACOSTA [id number] [facility] 2023-09-14 09:45:00 2023-09-14 09:45:00 Outpatient NAZANIN ACOSTA [id number] Naz[facility]in [facility] 2023-09-05 14:30:00 2023-09-05 14:30:00 Outpatient DINH SWEENEY NAZANIN ACOSTA [id number] [facility] 2023-09-04 11:30:00 2023-09-04 11:30:00 Outpatient NAZANIN ACOSTA [id number] Nazanin ybjustin 2023-09-04 11:25:00 2023-09-04 11:25:00 Outpatient NAZANIN ACOSTA [id number] [facility] 2023-09-04 00:00:00 2023-09-04 00:00:00 Outpatient PREZAS, DINH ACOSTA [id number] Nazanin Nolenybjustin 2023-09-04 00:00:00 2023-09-04 00:00:00 Outpatient PREZAS, DINH ACOSTA [id number] Nazanin Seybjustin 2023-08-30 11:00:00 2023-08-30 11:00:00 Outpatient NAZANIN NAZANIN [id number] Nazanin Seybold 2023-08-30 10:20:00 2023-08-30 10:20:00 Outpatient NAZANIN ACOSTA [id number] Nazanin Seybold 2023-08-30 09:15:00 2023-08-30 09:15:00 Outpatient NAZANIN NAZANIN [id number] Nazanin Seybold 2023-08-30 09:15:00 2023-08-30 09:15:00 Outpatient TIERAMERICO, YOBANI ACOSTA NAZANIN [id number] Nazanin Seybold 2023-08-30 00:00:00 2023-08-30 00:00:00 Outpatient PREZAS, DINH ACOSTA [id number] Nazanin Seybold 2023-08-28 00:00:00 2023-08-28 00:00:00 Outpatient PREZAS, DINH ACOSTA NAZANIN [id number] Nazanin Seybold 2023-08-25 00:00:00 2023-08-25 00:00:00 Outpatient NAZANIN NAZANIN [id number] Nazanin Seybold 2023-08-24 00:00:00 2023-08-24 00:00:00 Outpatient PREZAS, DINH AOCSTA NAZANIN [id number] Nazanin Seybold 2023-08-24 00:00:00 2023-08-24 00:00:00 Outpatient PREZAS, DINH ACOSTA NAZANIN [id number] Nazanin Seybold 2023-08-21 00:00:00 2023-08-21 00:00:00 Outpatient PREZASDINH NAZANIN NAZANIN [id number] Nazanin Seybold 2023-08-15 10:20:00 2023-08-15 10:20:00 Outpatient NAZANIN ACOSTA [id number] [facility] 2023-07-31 00:00:00 2023-07-31 00:00:00 Outpatient PREZAS, DINH ACOSTA NAZANIN [id number] Nazanin Seybjustin 2023-07-24 00:00:00 2023-07-24 00:00:00 Outpatient PREZAS, DINH NAZANIN ACOSTA [id number] Nazanin Nolenybjustin 2023-07-11 09:15:00 2023-07-11 09:15:00 Outpatient PREZAS, DINH ACOSTA NAZANIN [id number] Nazanin Seybjustin 2023-07-05 09:30:00 2023-07-05 09:30:00 Outpatient PREZAS, DINH NAZANIN ACSOTA [id number] [facility] 2023-06-23 00:00:00 2023-06-23 00:00:00 Outpatient PREZAS, DINH NAZANIN ACOSTA [id number] [facility] 2023-06-23 00:00:00 2023-06-23 00:00:00 Outpatient PREZAS, DINH NAZANIN ACOSTA [id number] [facility] 2023-06-22 08:45:00 2023-06-22 08:45:00 Outpatient LAB90 NAZANIN ACOSTA [id number] [facility] 2023-06-22 08:00:00 2023-06-22 08:00:00 Outpatient FIDENCIO MEZA NAZANIN ACOSTA [id number] [facility] 2023-06-22 00:00:00 2023-06-22 00:00:00 Outpatient SABRA CHAN NAZANIN ACOSTA [id number] [facility] 2023-06-22 00:00:00 2023-06-22 00:00:00 Outpatient PREZAS, DINH NAZANIN ACOSTA [id number] [facility] 2023-06-09 00:00:00 2023-06-09 00:00:00 Outpatient NAZANIN ACOSTA [id number] [facility] 2023-06-08 14:15:00 2023-06-08 14:15:00 Outpatient PREZAS, DINH NAZANIN ACOSTA [id number] [facility] 2023-06-06 00:00:00 2023-06-06 00:00:00 Outpatient PREZAS, DINH NAZANIN ACOSTA [id number] Nazanin Nolenjustin 2023-06-01 08:45:00 2023-06-01 08:45:00 Outpatient PREZAS, DINH NAZANIN ACOSTA [id number] Nazanin Nolenjustin 2023-04-20 00:00:00 2023-04-20 00:00:00 Outpatient PREZAS, DINH NAZANIN ACOSTA [id number] [facility]in [facility] 2023-04-04 00:00:00 2023-04-04 00:00:00 Outpatient PREZAS, DINH NAZANIN ACOSTA [id number] Naz[facility]in [facility] 2023-04-03 00:00:00 2023-04-03 00:00:00 Outpatient PREZAS, DINHRACHEL ACOSTA [id number] Nazanin [facility] 2023-03-13 14:00:00 2023-03-13 14:00:00 Outpatient POL[facility]ANDLER [id number] [facility] 2023-03-12 10:05:00 2023-03-12 10:05:00 Outpatient LAVERN, CAROLE ACOSTA [id number] [facility] 2023-03-06 00:00:00 2023-03-06 00:00:00 Outpatient PREZAS, DINH NA[facility]ANIN [facility]CO[facility] [id number] [facility] 2023-02-28 10:15:00 2023-02-28 10:15:00 Outpatient PREZAS, DINH NAZANIN ACOSTA [id number] [facility] 2023-02-24 00:00:00 2023-02-24 00:00:00 Outpatient MD NAZANIN ANTUNEZ [id number] [facility] 2023-02-20 00:00:00 2023-02-20 00:00:00 Outpatient PREZAS, DINH ACOSTA [id number] [facility] 2023-02-20 00:00:00 2023-02-20 00:00:00 Outpatient PREZAS, DINH ACOSTA [id number] Nazanin Cash 2023-02-10 00:00:00 2023-02-10 00:00:00 Outpatient DINH SWEENEY [id number] Nazanin Cash 2023-02-09 08:00:00 2023-02-09 08:00:00 Outpatient EDUARD ACOSTA [id number] Nazanin Cash 2023-02-06 00:00:00 2023-02-06 00:00:00 Outpatient DINH SWEENEY [id number] Nazanin Cash 2023-02-06 00:00:00 2023-02-06 00:00:00 Outpatient PREDINH LOPEZ [id number] Nazanin Cash 2023-02-06 00:00:00 2023-02-06 00:00:00 Outpatient PREDINH LOPEZJERONIMO ACOSTA [id number] Nazanin Cash 2023-02-05 00:00:00 2023-02-05 00:00:00 Outpatient PREDINH LOPEZ NAZANIN [id number] Nazanin Cash 2023-01-26 09:00:00 2023-01-26 09:00:00 Outpatient PREDINH LOPEZ NAZANIN [id number] Nazanin Cash 2023-01-26 00:00:00 2023-01-26 00:00:00 Outpatient MD NAZANIN ANTUNEZ [id number] Nazanin juan danieljustin 2023-01-26 00:00:00 2023-01-26 00:00:00 Outpatient MD NAZANIN ANTUNEZ [id number] Nazanin Cash 2023-01-26 00:00:00 2023-01-26 00:00:00 Outpatient MD NAZANIN ANTUNEZ [id number] Nazanin [facility] Results Test Description Test Time Test Comments Results Result Co mments Source [facility] Notes Date/Time Note Provider Source Referral ID Status Reason Start Date Expiration Date V isits Requested Visits Authorized [id number] Pending Review 02/06/2024 08/04/2024 [facility]* Auth/Cert (Routine) Specialty Diagnoses / Procedures Referred By Arianne neves Referred To Contact Diagnoses Abdominal aortic aneurysm, without rupture, unspecified Procedures CT ANGIOGRAM CHEST ABDOMEN PELVIS [facility] [address] [facility] [place] [address] Phone: tel: fax: Referral ID Status Reason Start Date Expiration Date Visits Re quested Visits Authorized [id number] 1 [facility] 00:42:29 [place] [id number] 00:42:29 [place] 66054-08-28 13:04:25 Chief Complaint Patient presents with Rash Abel Petty T [facility]2024-02-29 07:54:39 Chief Complaint Patient presents with Skin Problem Red spot on left leg that she noticed last week. She states it feels numb. Keiry Chavarria MA II [facility] Keiry [facility]ria [facility], [facility]
[2024-02-08] MEDS ORDERED: HYDROCODONE/APAP 5/325 MG TAB ONE (09:43)
[2024-02-08] MEDS ORDERED: ONDANSETRON 4 MG (ODT) TAB ONE (10:19)
[2024-02-08 10:34] LABS: Hematocrit 41.8 % (36.0-45.0); Hemoglobin 14.2 g/dL (12.0-15.0); MCH 30.1 pg (27.0-35.0); MCV 88.6 fL (80-100); MPV 6.6 fL (7.6-11.3); Platelets 202 thou/uL (152-406); RBC Red Blood Cell Count 4.72 M/uL (3.86-4.86); Red Cell Distribution Width 13.2 % (12.1-15.2)
--- NOTE | 2024-02-08 10:42 | RAD REPORT ---
EXAM: Head Brain Wo Cont HISTORY: TRAUMA COMPARISON: None TECHNIQUE: Multiple contiguous axial images were obtained for a CT of the brain without contrast. Sag ittal and coronal reformats were performed. One or more of the following dose reduction techniques were used: Automated exposure control, adjus tment of the mA and kV according to patient size, and iterative reconstruction. Unless otherwise specified, incidental findings do not require dedicated imaging follow-up. FINDINGS: No evidence of hydrocephalus, intracranial hemorrhage, or extra-axial fluid collection. The brain is normal in morphology. The calvarium is intact. The visualized paranasal sinuses and mastoid air cells are essentially clear . Large left frontal scalp and periorbital hematoma. IMPRESSION: No evidence of acute intracranial abnormality. Large left frontal scalp and periorbital hematoma.
--- NOTE | 2024-02-08 10:49 | RAD REPORT ---
EXAM: Wrist Left 3 View HISTORY: [facility] MAIN Swelling;Pain Bed Name: 13 COMPARISON: None TECHNIQUE: 3 views of the left wrist. FINDINGS: No evidence of acute fracture or dislocation. Joint alignment is maintained. Soft tissue sw elling about the dorsal left aspect of the wrist. No significant degenerative changes are present. IMPRESSION: No evidence of acute osseous abnormality. Soft tissue swelling about the dorsal left aspect of the wr ist.
[2024-02-08 11:00] LABS: Anion Gap 11.2 mEq/L (5.0-15.0); Potassium 4.2 mEq/L (3.5-5.1)
--- NOTE | 2024-02-08 11:19 | ER ---
Nurse's Notes [facility] Name: Bre Kwon Age: 79 yrs Sex: Female : 1945 Arrival Date: 02/08/2024 Time: 08:45 Bed 13 Private MD: Diagnosis: Acute post-traumatic headache;Contusion of eyeball and orbital tissues, left eye;Fall (on)(from) sidewalk curb;Fall on same level from slipping, tripping and stumbling with subsequent striking against object Presentation: 02/07 08:48 Chief complaint: Patient states: Pain 12/01 EMS states: Tripped on concrete curb 20 min ll1 WASHER OFF. Hematoma to L upper eye area. L arm and R knee skin tears. No LOC, no blood thinners. Coronavirus screen: Client denies travel out of the [place] in the last 14 days. At this time, the client does not indicate any symptoms associated with coronavirus-19. Ebola Screen: Patient denies travel to an Ebola-affected area in the 21 days before illness onset. Initial Sepsis Screen: Does the patient meet any 2 criteria? No. Patient's initial sepsis screen is negative. Does the patient have a suspected source of infection? No. Patient's initial sepsis screen is negative. Risk Assessment: Do you want to hurt yourself or someone else? Patient reports no desire to harm self or others. Onset of symptoms was February 08, 2024. 08:48 Method Of Arrival: EMS: [facility] ll1 08:48 Acuity: KEYLA 3 ll1 Triage Assessment: 08:50 General: Appears distressed, uncomfortable, Behavior is calm, cooperative, appropriate ll1 for age. Pain: Complains of pain in L forehead. EENT: Reports pain in left eye. Neuro: Reports headache. Derm: Reports bruising L arm. Musculoskeletal: Reports pain in face and left arm. Injury Description: Abrasion sustained to left hand and right leg Bruise sustained to left arm. 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 - Infectious Disease History:: Denies. - Social history:: Smoking status: Patient/guardian denies using tobacco. Screenin:54 [facility] ED Fall Risk Assessment (Adult) History of falling in the last 3 months, db including since admission Yes- single mechanical fall (1 pt) Confusion or Disorientation No (0 pts) Intoxicated or Sedated No (0 pts) Impaired Gait No (0 pts) Mobility Assist Device Used No (0 pt) Altered Elimination No (0 pt) Score/Fall Risk Level 0 - 2 = Low Risk Oriented to surroundings, Maintained a safe environment. Abuse screen: Denies threats or abuse. Denies injuries from another. Nutritional screening: No deficits noted. Tuberculosis screening: No symptoms or risk factors identified. Assessment: 08:51 Reassessment: Patient appears in no apparent distress at this time. Patient and/or db family updated on plan of care and expected duration. Pain level reassessed. Patient is alert, oriented x 3, equal unlabored respirations, skin warm/dry/pink. General: Appears in no apparent distress. comfortable, Behavior is calm, cooperative. Pain: Complains of pain in face, scalp, right hand and left hand. Neuro: Level of Consciousness is awake, alert, obeys commands, Oriented to person, place, time, situation. Cardiovascular: No deficits noted. Respiratory: Airway is patent Respiratory effort is even, unlabored, Respiratory pattern is regular, symmetrical. GI: No deficits noted. No signs and/or symptoms were reported involving the gastrointestinal system. : No deficits noted. No signs and/or symptoms were reported regarding the genitourinary system. EENT: No deficits noted. No signs and/or symptoms were reported regarding the EENT system. Derm: Wound noted right leg and left hand and left arm and face and left eye. 10:28 Reassessment: Patient appears in no apparent distress at this time. Patient and/or db family updated on plan of care and expected duration. Pain level reassessed. Patient is alert, oriented x 3, equal unlabored respirations, skin warm/dry/pink. PT GIVEN ZOFRAN FOR NAUSEA. STATES HAS NOT EATEN. PROVIDER CRACKERS AND DRINK. DR. FOREMAN NOTIFIED. 10:45 Reassessment: Patient appears in no apparent distress at this time. Patient and/or db family updated on plan of care and expected duration. Pain level reassessed. Patient is alert, oriented x 3, equal unlabored respirations, skin warm/dry/pink. EATING CRACKERS. NAUSEA SYMPTOMS ARE BETTER. 11:30 Reassessment: Patient appears in no apparent distress at this time. Patient and/or db family updated on plan of care and expected duration. Pain level reassessed. Patient is alert, oriented x 3, equal unlabored respirations, skin warm/dry/pink. Reassessment: Patient states feeling better. Patient states symptoms have improved. General: Appears in no apparent distress. comfortable, Behavior is calm, cooperative. Vital Signs: 08:48 Pain 8/10; ll1 08:51 BP 187 / 91; Pulse 56; Resp 18; Temp 98.7; Pulse Ox 97% on R/A; db 09:30 BP 193 / 86; Pulse 55; Resp 16; Pulse Ox 96% ; db 10:10 BP 163 / 101; Pulse 57; Resp 18; Pulse Ox 96% on R/A; db 11:30 BP 193 / 87; Pulse 61; Resp 18; Temp 98.7; Pulse Ox 95% ; db 08:48 Pain Scale: Adult ll1 ED Course: 08:48 Patient arrived in ED. ll1 08:49 Triage completed. ll1 08:50 Sasha Foreman MD is Attending Physician. gb1 08:50 Arm band placed on Patient placed in an exam room, on a stretcher. ll1 08:51 Carol Fink, ROLANDO is Primary Nurse. db 09:[address] via stretcher. db 10:03 CT Head Brain wo Cont In Process Unspecified. EDMS 10:10 Wrist Left (3 View) XRAY In Process Unspecified. EDMS 10:25 Initial lab(s) drawn, by me, sent to lab. Inserted saline lock: 22 gauge in left wrist, db using aseptic technique. Blood collected. Flushed with 10 mL NS. 10:46 Patient has correct armband on for positive identification. Bed in low position. Call db light in reach. Side rails up X 1. Pulse ox on. NIBP on. Warm blanket given. 11:30 Provided Education on: DISCHARGE. db 11:30 No provider procedures requiring assistance completed. IV discontinued, intact, db bleeding controlled, No redness/swelling at site. Administered Medications: 09:45 Drug: HYDROcodone-acetaminophen PO 5 mg-325 mg 1 tabs PO once Route: PO; db 11:53 Follow up: Response: No adverse reaction; Pain is decreased db 10:20 Drug: Ondansetron PO 4 mg PO once Route: PO; db 11:52 Follow up: Response: No adverse reaction; Nausea is decreased db Medication: 11:30 VIS not applicable for this client. db Outcome: 11:18 Discharge ordered by . gb1 11:30 Discharged to home via wheelchair, with family, db 11:30 Condition: stable 11:30 Discharge instructions given to patient, family, Instructed on discharge instructions, follow up and referral plans. 11:53 Patient left the ED. db Signatures: Dispatcher [employer] Killian Wesley RN RN ll1 Carol Fink RN RN db Sasha Foreman MD MD gb1
--- NOTE | 2024-02-08 11:19 | EDPHYS ---
Physician Documentation [facility] Name: Bre Kwon Age: 79 yrs Sex: Female : 1945 Arrival Date: 02/08/2024 Time: 08:45 Bed 13 Private MD: ED Physician Sasha Foreman HPI: 02/07 10:24 This 79 yrs old Female presents to ER via EMS with complaints of Fall Injury. gb1 10:24 Ms. Kwon is a 79-year-old female that was walking outside with a friend today and gb1 tripped and fell and hit the front of her left forehead on the parking lot curb. Patient states that she did not lose consciousness and she was awake and alert during the entire event. She also states that she did not pass out and that she tripped and fell. 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 She denies any changes of strength or weakness in her extremities. Historical: - Allergies: 08:49 Augmentin; ll1 08:49 BISPHOSPHONATES; ll1 08:49 Bupropion; ll1 08:49 Evista; ll1 08:49 Fosamax; ll1 08:49 glucosamine; ll1 08:49 Raloxifene; ll1 08:49 Zrazquh-Aka-Gec Reductase Inhibitors; ll1 08:49 Sulfa (Sulfonamide Antibiotics); ll1 - PMHx: 08:49 Arthritis to back; COPD; Hyperlipidemia; Hypertension; Thyroid problem; Vertigo; ll1 - Immunization history:: Adult Immunizations up to date. - Infectious Disease History:: Denies. - Social history:: Smoking status: Patient/guardian denies using tobacco. Exam: 10:24 Constitutional: This is a well developed, well nourished patient who is awake, alert, gb1 and in no acute distress. Eyes: Pupils equal round and reactive to light, extra-ocular motions intact. Lids and lashes normal. Conjunctiva and sclera are non-icteric and not injected. Cornea within normal limits. The left periorbital area both infra and supraorbital are with severe swelling with small superficial abrasions. Very tender around the entire orbit on the left. There is extreme swelling and erythema and a palpable hematoma to the left orbit patient is able to open her eyes and the conjunctivae is clear without any signs of conjunctival hemorrhage. ENT: Nares patent. No nasal discharge, no septal abnormalities noted. Tympanic membranes are normal and external auditory canals are clear. Oropharynx with no redness, swelling, or masses, exudates, or evidence of obstruction, uvula midline. Mucous membranes moist. Chest/axilla: Normal chest wall appearance and motion. Nontender with no deformity. No lesions are appreciated. Cardiovascular: Regular rate and rhythm with a normal S1 and S2. No gallops, murmurs, or rubs. Normal PMI, no JVD. No pulse deficits. Respiratory: Lungs have equal breath sounds bilaterally, clear to auscultation and percussion. No rales, rhonchi or wheezes noted. No increased work of breathing, no retractions or nasal flaring. Abdomen/GI: Soft, non-tender, with normal bowel sounds. No distension or tympany. No guarding or rebound. No evidence of tenderness throughout. Back: No spinal tenderness. No costovertebral tenderness. Full range of motion. Skin: Warm, dry with normal turgor. Normal color with no rashes, no lesions, and no evidence of cellulitis. MS/ Extremity: Pulses equal, no cyanosis. Neurovascular intact. Full, normal range of motion. Neuro: Awake and alert, GCS 15, oriented to person, place, time, and situation. Cranial nerves II-XII grossly intact. Motor strength 5/5 in all extremities. Sensory grossly intact. Cerebellar exam normal. Normal gait. Vital Signs: 08:48 Pain 8/10; ll1 08:51 BP 187 / 91; Pulse 56; Resp 18; Temp 98.7; Pulse Ox 97% on R/A; db 09:30 BP 193 / 86; Pulse 55; Resp 16; Pulse Ox 96% ; db 10:10 BP 163 / 101; Pulse 57; Resp 18; Pulse Ox 96% on R/A; db 11:30 BP 193 / 87; Pulse 61; Resp 18; Temp 98.7; Pulse Ox 95% ; db 08:48 Pain Scale: Adult ll1 MDM: 08:50 Medical Screening Exam initiated gb1 10:24 Differential diagnosis: abrasion, closed head injury, contusion, fracture, laceration, gb1 multiple trauma. Differential diagnosis: I am concerned for an orbital floor fracture vs maxillofacial fracture. At this time I doubt basilar skull fracture I would also consider subdural hematoma. Doubt epidural hematoma at this time patient's vital signs are 187/91 pulse 56. I doubt a syncopal cause of the fall. This more likely seems like a mechanical fall.. Data reviewed: lab test result(s), radiologic studies, CT scan. 02/07 09:42 Order name: CBC w/o diff; Complete Time: 11:11 gb1 02/07 09:42 Order name: BMP; Complete Time: 11:11 gb1 02/07 09:40 Order name: CT Head Brain wo Cont; Complete Time: 11:11 gb1 02/07 09:40 Order name: Wrist Left (3 View) XRAY; Complete Time: 11:11 gb1 Administered Medications: 09:45 Drug: HYDROcodone-acetaminophen PO 5 mg-325 mg 1 tabs PO once Route: PO; db 11:53 Follow up: Response: No adverse reaction; Pain is decreased db 10:20 Drug: Ondansetron PO 4 mg PO once Route: PO; db 11:52 Follow up: Response: No adverse reaction; Nausea is decreased db Disposition Summary: 02/08/24 11:18 Discharge Ordered Notes: Location: Home gb1 Problem: new gb1 Symptoms: are unchanged gb1 Condition: Fair gb1 Diagnosis - Acute post-traumatic headache gb1 - Contusion of eyeball and orbital tissues, left eye gb1 - Fall (on)(from) sidewalk curb gb1 - Fall on same level from slipping, tripping and stumbling with subsequent striking gb1 against object Followup: gb1 - With: Private Physician - When: 24 Hours - Reason: Recheck today's complaints, Continuance of care Discharge Instructions: - Discharge Summary Sheet gb1 - Hematoma, [id number] gb1 Forms: - Medication Reconciliation Form gb1 - Antibiotic Education gb1 - Prescription Opioid Use gb1 - Patient Portal Instructions gb1 - Leadership Thank You Letter gb1 Signatures: Dispatcher [employer] Killian Wesley RN RN ll1 Carol Fink RN RN db Sasha Foreman MD MD gb1 Corrections: (The following items were deleted from the chart) 09:40 09:40 Head Brain Wo Cont+CT.RAD.BRZ ordered. EDMS EDMS 09:41 09:41 Wrist Left 3 View+RAD.RAD.BRZ ordered. EDMS EDMS
[2024-02-08 12:07] VITALS: TEMP 98.7
[2024-02-08 12:20] VITALS: BP 193/87; O2SAT 95
== END 2024-02-08 11:53 | disposition home or self-care (01) ==
LOC: ER 08:45
DX: G44.319 Acute post-traumatic headache, not intractable (principal); S05.12XA Contusion of eyeball and orbital tissues, left eye, initial encounter; W01.198A Fall on same level from slipping, tripping and stumbling with subsequent striking against other object, initial encounter; I10 Essential (primary) hypertension; J44.9 Chronic obstructive pulmonary disease, unspecified
CPT/HCPCS: 80048; 36415; 85027; 70450; 73110; 99284; Q0162